=== PATIENT | female | born 1950 | race Caucasian/White ===

== ENCOUNTER 2021-05-26 12:28 | Outpatient (RCR) | payer MEDICARE, SELFPAY ==
--- NOTE | 2021-05-27 08:14 | HP.OTEVAL ---
Patient's Visit Information BRIDGER DEVI is a 70 year old F, referred to Occupational Therapy by Dr. Emigdio Maloney DO, with a diagnosis of Lymphedema. Date of Evaluation: 05/26/21 Occupational Therapist: MADIHA Porter/Yolanda, CHT - Subjective This 70 year old female was seen for OT eval with dx of lymphedema - pt states she started swelling about two to four weeks ago. pt states swelling gets worse following chemo- typically with leg cramping-. pt states she is using a light compression socks- she found at the store (compression is 8-15mmHg) and states this has helped a lot. Pt would like to know what more can be done with the swelling. - Lymphedema (Circumferential Measure) Lower calf: right 27.5cm left 28.5cm Largest calf: right 39.5cm left 39.8cm Below knee: right 40cm left 40cm Above knee: right 40cm left 46cm Mid-thigh: right 52.cm left 52.5cm Groin: right 58cm left 57cm - Goals Demonstrate a 20% reduction in edema by d/c: Yes Demonstrate adequate knowledge of self-massage by 2nd week: Yes Demonstrate adequate knowledge skin care/prec by 2nd week: Yes Demonstrate adequate knowledge therapeutic exercises by d/c: Yes Select approp compression garment w/donning/care/wear by d/c: Yes Voice need to replace compression garment every 4-6mo by dc: Yes - Rehabilitation General Assessment: pt demo with need of OT services 2-3 visits to ed. pt on life long mtg of lymphedema, lymph stimulation exercise, self manual lymph massage, skin care and precautions along with use of compression garments for pt to mtg LE edema. Today therapist ed. pt on compression garments and Velcro closure devices and zippers. pt demo understanding that if the current compression socks do not continue to mtg. her swelling she was advised to increase compression to 20-30mmHg. Pt demo understanding. Due to pts distance in driving pt has agreed to HEP and to call if she has questions or concerns. Rehabilitation Potential: Good - Anticipated Interventions Education re Diagnosis, Manual Lymph Drainage, Education re Life-long lymphedema Management, Education re Skin Care and Precautions, Education re Self Massage Techniques, Education re Correct Donning Tech,Care&Wearing Sched Comp Garments - Visit Plan TEXT: Thank you for the opportunity to evaluate your patient. For Medicare and Medicare HMO plans, please review the plan of care and approve it. It will need to be FAXED BACK to us at [phone] for Medicare purposes. Please let me know if there are questions or concerns regarding this plan of care. Physician Signature: Date:
--- NOTE | 2021-05-30 09:30 | HP.OTDCSUM ---
It has been my pleasure to treat BRIDGER DEVI under orders from Dr. Emigdio Maloney DO, for the diagnosis of Lymphedema for a total of 1 visit(s). Please see the following information for a summary of their discharge status. Objective/Function: Due to pts driving distance pt has agreed to a HEP vs attending a few sessions- pt demo understanding of exercise and was given handouts to ensure correct tasha. pt was advised to call with questions or concerns. Patient Goals: Learn how to Manage Lymphedema, Learn how to Apply Compression Stockings Demonstrate a 20% reduction in edema by d/c: Yes Demonstrate adequate knowledge of self-massage by 2nd week: Yes Demonstrate adequate knowledge skin care/prec by 2nd week: Yes Demonstrate adequate knowledge therapeutic exercises by d/c: Yes Select approp compression garment w/donning/care/wear by d/c: Yes Voice need to replace compression garment every 4-6mo by dc: Yes If there are questions or concerns regarding this patient's occupational therapy, please fell free to call me at [phone]. Thank you for the referral of this patient. Sincerely, Miley Delgadillo, OTR/L, CHT
== END 2021-05-26 19:00 | disposition home or self-care (01) ==
LOC: OT 12:28
PROVIDERS: PCP Family Medicine; Referring Provider Internal Medicine Hematology & Oncology; Visit Provider Internal Medicine Hematology & Oncology
DX: I89.0 Lymphedema, not elsewhere classified (principal)
CPT/HCPCS: 97166; 97530

== ENCOUNTER 2021-08-10 10:46 | Emergency (ER) | payer MEDICARE, SELFPAY ==
[2021-08-10 10:51] VITALS: BP 118/51; PULSE 97; RESP 18; TEMP 36.4; O2SAT 93; BMI 33.8
--- NOTE | 2021-08-10 10:55 | EDS_ITS ---
HPI History of Present Illness Chief Complaint: Allergic Reaction Informant: patient and EMS Narrative Narrative: 10-year-old female currently being treated for metastatic esophageal cancer was receiving chemotherapy today. Reportedly turned red and started having shortness of breath and was very itchy. This is a known complication of her chemotherapy agent which is oxaliplatin. Oncology staff administered 50 of Benadryl 100 mg hydrocortisone and 0.3 mg epinephrine IM. Patient continued to wheeze and be red and they had her on supplemental oxygen. Patient has a history of COPD and metastasis to her lung. She also has a history of atrial fibrillation. She is on Coumadin. [facility] Medical History Adenocarcinoma of right lung COPD (chronic obstructive pulmonary disease) Eczema Essential hypertension Goiter Hyperlipidemia Hypothyroidism Malignant neoplasm of lower third of esophagus Obesity Osteopenia Paroxysmal atrial fibrillation Psoriasis Thyroid cancer Type 2 diabetes mellitus Home Medications cholecalciferol (vitamin D3) 25 mcg (1,000 unit) capsule 25 mcg PO DAILY 03/31/21 [History Last Taken Unknown] levothyroxine 150 mcg capsule 150 mcg PO DAILY 03/31/21 [History Last Taken Unknown] loratadine 10 mg capsule 10 mg PO DAILY 03/31/21 [History Last Taken Unknown] magnesium oxide 500 mg tablet 400 mg PO BID 03/31/21 [History Last Taken Unknown] pantoprazole 40 mg tablet,delayed release (Protonix) 40 mg PO DAILY 03/31/21 [History Last Taken Unknown] pravastatin 40 mg tablet 40 mg PO QHS 03/31/21 [History Last Taken Unknown] metoprolol succinate 100 mg tablet,extended release 24 hr (Toprol XL) 100 mg PO DAILY #90 tabs 06/30/21 [Rx Last Taken Unknown] acetaminophen 500 mg tablet 1,000 mg PO Q8H PRN Pain 08/10/21 [History Last Taken Unknown] albuterol 90 mcg/actuation aerosol inhaler 90 mcg inhalation Q4H PRN Wheezing 08/10/21 [History Last Taken Unknown] diltiazem HCl 240 mg capsule,extended release 24 hr 240 mg PO BID heart 08/10/21 [History Last Taken Unknown] doxycycline monohydrate 100 mg tablet 100 mg PO BID 08/10/21 [History Last Taken Unknown] furosemide 20 mg tablet 20 mg PO DAILY 08/10/21 [History Last Taken Unknown] mecobalamin (vitamin B12) 1,000 mcg chewable tablet (B12 Active) 1,000 mcg PO DAILY 08/10/21 [History Last Taken Unknown] nystatin 100,000 unit/mL oral suspension 5 ml PO 4X/DAY 08/10/21 [History Last Taken Unknown] oxycodone-acetaminophen 5 mg-325 mg tablet (Percocet) 1 tab PO Q6H PRN Pain 08/10/21 [History Last Taken Unknown] potassium chloride 20 mEq tablet,extended release 20 meq PO DAILY 08/10/21 [History Last Taken Unknown] promethazine 25 mg tablet 25 mg PO Q6H PRN Nausea 08/10/21 [History Last Taken U nknown] tiotropium 2.5 mcg-olodaterol 2.5 mcg/actuation mist for inhalation (Stiolto Respimat) 2 puff inhalation DAILY 08/10/21 [History Last Taken Unknown] warfarin 1 mg tablet 1 mg PO DAILY 08/10/21 [History Last Taken Unknown] zinc sulfate 66 mg tablet (Zinc-15) 66 mg PO DAILY 08/10/21 [History Last Taken Unknown] Allergy/AdvReac Type Severity Reaction Status Date / Time amoxicillin Allergy unkown Verified 06/30/21 07:35 oxaliplatin Allergy Shortness Verified 08/10/21 10:51 of breath Penicillins Allergy unkown Verified 06/30/21 07:35 adhesive tape AdvReac unkown Verified 06/30/21 07:35 naproxen [From Aleve] AdvReac unkown Verified 06/30/21 07:35 Family History Other COPD (chronic obstructive pulmonary disease) CVA (cerebral vascular accident) Cancer Hypertension Myocardial infarction Surgical History H/O esophagectomy (03/2012) History of cardioversion (08/05/12) History of gastrectomy (03/2012) History of jejunostomy tube placement (03/2012) History of partial thyroidectomy (1993) History of pyloroplasty (03/2012) History of thoracentesis (05/2012) History of thoracotomy (03/2012) Status post pericardiocentesis (05/2012) Social History Smoking Status: Former smoker quit date: 02/26/11 ROS ROS ED Constitutional Constitutional ED: Denies chills or weight loss Eyes Eyes: Denies change in vision or diplopia ENT ENT ED: Denies ear pain, rhinorrhea or sore throat Cardiovascular Cardiovascular: Denies chest pain, orthopnea, palpitations or racing heartbeat Respiratory/Chest Respiratory/Chest: Reports cough and dyspnea; Denies orthopnea Gastrointestinal Gastrointestinal: Denies abdominal pain, diarrhea, nausea or vomiting Genitourinary Genitourinary ED: Denies dysuria, hematuria or urinary frequency Musculoskeletal Musculoskeletal: Denies arthralgias or myalgias Integumentary Reports rash and other Details: Itching ; Denies abscess Neurologic Neurologic: Denies headache(s) or weakness Psychiatric Psychiatric: Denies anxiety, depression, suicidal ideation or suicidal thoughts Endocrine Endocrinology: Denies polydipsia, polyphagia or polyuria Allergic/Immunologic Allergic/Immunologic ED: Denies mouth swelling, tongue swelling or urticaria EXAM Physical Exam Const Vital Signs: 08/10/21 10:51 08/10/21 11:42 08/10/21 11:50 Temperature 97.5 F L Temperature Source Oral Pulse Rate 97 92 81 Respiratory Rate 18 16 18 Respiratory Pattern Tachypnea Blood Pressure 118/51 L 142/79 H Blood Pressure Mean 73 100 Pulse Ox 93 96 Oxygen Delivery Method Nasal Cannula Nasal Cannula Oxygen Flow Rate (L/min) 4 3 08/10/21 12:30 Temperature Temperature Source Pulse Rate 83 Respiratory Rate 18 Respiratory Pattern Blood Pressure 125/79 H Blood Pressure Mean 94 Pulse Ox 94 Oxygen Delivery Method Room Air Oxygen Flow Rate (L/min) Positive well nourished and well developed General Appearance ED: well developed HEENT Reports normocephalic, head/scalp atraumatic and moist mucous membranes Eyes PERRL and EOMs intact bilaterally Neck no lymphadenopathy, supple and no JVD Resp normal respiratory effort and clear to auscultation bilaterally Auscultation: wheezes expiratory wheezes Cardio no murmurs Rate: tachycardic Rhythm: abnormal rhythm irregularly irregular GI normal to inspection, nondistended, normoactive bowel sounds and non-tender Palpation: soft Back/Spine no CVA tenderness and normal ROM Extremity normal to inspection General Extremety ED: Negative for edema General Extremity: Negative for edema Neuro oriented x3 and CN's II-XII intact bilaterally Sensorium / Orientation: alert Motor Exam: strength 5/5 throughout Psych mental status grossly normal Mood & Affect: Negative for depressed or tearful Skin no wounds Skin Narrative: Patient is erythematous arms torso and head and neck. There are excoriations that are mildly bleeding on the left posterior forearm. MDM MDM MDM Narrative Medical decision making narrative: Patient received additional IV Benadryl. Patient was observed for 3 hours post epinephrine injection. She is doing significantly better. She has not required any supplemental oxygen and the itching is improved. Discharge Plan Triage Chief Complaint: Allergic Reaction ED Provider: Evan Oliveira Dx/Rx/DC Orders Clinical Impression: Allergic reaction caused by a drug Instructions: ED General Allergic Reactions Prescriptions: No Action cholecalciferol (vitamin D3) 25 mcg (1,000 unit) capsule 25 mcg PO DAILY levothyroxine 150 mcg capsule 150 mcg PO DAILY loratadine 10 mg capsule 10 mg PO DAILY magnesium oxide 500 mg tablet 400 mg PO BID pantoprazole [Protonix] 40 mg tablet,delayed release (DR/EC) 40 mg PO DAILY pravastatin 40 mg tablet 40 mg PO QHS metoprolol succinate [Toprol XL] 100 mg tablet extended release 24 hr 100 mg PO DAILY Qty: 90 3RF nystatin [Mycostatin] 100,000 unit/mL Suspension 5 ml PO 4X/DAY doxycycline monohydrate 100 mg Tablet 100 mg PO BID acetaminophen 500 mg Tablet 1,000 mg PO Q8H PRN (Reason: Pain) oxycodone-acetaminophen [Percocet] 5-325 mg Tablet 1 tab PO Q6H PRN (Reason: Pain) promethazine 25 mg Tablet 25 mg PO Q6H PRN (Reason: Nausea) furosemide 20 mg Tablet 20 mg PO DAILY albuterol 90 mcg/actuation Aerosol 90 mcg INHALATION Q4H PRN (Reason: Wheezing) warfarin 1 mg Tablet 1 mg PO DAILY Zinc-15 66 mg Tablet 66 mg PO DAILY potassium chloride 20 mEq Tablet Extended Release 20 meq PO DAILY Stiolto Respimat 2.5-2.5 mcg/actuation Mist 2 puff INHALATION DAILY B12 Active 1,000 mcg Tablet,Chewable 1,000 mcg PO DAILY diltiazem HCl 240 mg capsule,extended release 24hr 240 mg PO BID Primary Care Provider: Kaitlin Christie Referrals: Alexx Hyde MD [NON-STAFF] - As Needed Activity Restrictions/Additional Instructions: Been taking Benadryl 25 mg every 6 hours for the next day. Return if worsening or concerns Disposition Disposition: Home, Self Care
[2021-08-10] MEDS: DiphenhydrAMINE 50 MG/ML Syringe 25 MG IV (11:04)
[2021-08-10] MEDS: Ipratropium/Albuterol Sulfate 3 ML AMPUL.NEB INHALATION ×2 (11:40)
[2021-08-10 11:42] VITALS: PULSE 92; RESP 16
[2021-08-10 11:50] VITALS: BP 142/79; PULSE 81; RESP 18; O2SAT 96
[2021-08-10 12:30] VITALS: BP 125/79; PULSE 83; RESP 18; O2SAT 94
== END 2021-08-10 14:00 | disposition home or self-care (01) ==
PROVIDERS: Emergency Provider Emergency Medicine; PCP Family Medicine; Visit Provider Emergency Medicine
DX: R06.02 Shortness of breath (principal); C78.01 Secondary malignant neoplasm of right lung; C15.9 Malignant neoplasm of esophagus, unspecified; J44.9 Chronic obstructive pulmonary disease, unspecified; I48.0 Paroxysmal atrial fibrillation; L29.8 Other pruritus; T45.1X5A Adverse effect of antineoplastic and immunosuppressive drugs, initial encounter; I10 Essential (primary) hypertension; E78.5 Hyperlipidemia, unspecified; E03.9 Hypothyroidism, unspecified; E66.9 Obesity, unspecified; Z79.01 Long term (current) use of anticoagulants; Z79.899 Other long term (current) drug therapy; Z87.891 Personal history of nicotine dependence
CPT/HCPCS: 94640; 96374; 99285; A4216